=== PATIENT | male | born 1945 | race Caucasian/White ===

== ENCOUNTER 2017-07-05 02:44 | Inpatient (IN) | payer MEDICARE ==
[~2017-07-05] VITALS: Ht 177.8 cm; Wt 70.8 kg
[~2017-07-05 02:44] MED LIST: AEC81 PO; ALPR0.255 PO; BENA10TA3 PO; CALC-1009 PO; ERGO400C PO; FOLI1TAB15 PO; GABA-318 PO; GABA-531 PO; GLUC-145 PO; IRON PEG; LEVE1000 PO; LORA10TA60 PO; METO-408 PO; MULT-1203 PO; PANT40TA25 PO; PRIM250T30 PO; ROSU10TA PO; TRAM50TA4 PO; VITAMIN B12 PO; ZOLE4VIA5 IV; [UNRECOGNIZED DRUG - CODE] PO
[2017-07-05] MEDS ORDERED: SODIUM CHLORIDE 0.9% 1000ML 1,000 ML IV ONE (04:58)
[2017-07-05 05:30] LABS: OCCULT BLOOD STOOL SINGLE ONLY POSITIVE (NEGATIVE)
[2017-07-05 05:40] LABS: HEMATOCRIT 45.6 % (42-54); MEAN CORPUSCULAR HEMOGLOBIN 32.5 pg (27.0-33.0); MEAN CORPUSCULAR HGB CONC 33.8 g/dL (32.0-36.0); MEAN CORPUSCULAR VOLUME 96.2 fL (79-99); PLATELET COUNT (AUTO) 305 K/uL (130-400); RED BLOOD CELL COUNT(AUTO) 4.74 MIL/uL (4.50-6.20); RED CELL DISTRIBUTION WIDTH 12.8 % (11.0-15.5); WHITE BLOOD COUNT (AUTO) 16.1 K/uL (4.8-10.8)
[2017-07-05 05:48] LABS: POTASSIUM 3.5 mmol/L (3.5-5.1)
[2017-07-05 05:57] LABS: ALBUMIN 3.9 g/dL (3.5-5.0); BILIRUBIN,TOTAL 0.4 mg/dL (0.2-1.0); TOTAL PROTEIN, SERUM 7.2 g/dL (6.0-8.3)
[2017-07-05 06:11] LABS: BAND NEUTROPHILS % (MANUAL) 7 % (0-2); EOSINOPHILS % (MANUAL) 1 % (1-6); LYMPHOCYTES % (MANUAL) 4 % (22-44); MONOCYTES % (MANUAL) 5 % (2-9); SEGMENTED NEUTROPHILS % 83 % (40-70)
[2017-07-05 06:12] LABS: MAN.DIFF COMMENT-IMPRESSION MANUAL DIFFERENTIAL; PLATELET MORPHOLOGY COMMENT ADEQUATE
[2017-07-05] MEDS ORDERED: LEVOFLOXACIN 500 MG/D5W 100 ML 100 ML ONE (06:57)
[2017-07-05] MEDS ORDERED: METRONIDAZOLE 500MG/100ML BAG 100 ML ONE (07:52)
[2017-07-05 09:32] LABS: HEMATOCRIT 40.8 % (42-54)
[2017-07-05] MEDS ORDERED: ACETAMINOPHEN 325 MG TAB PO PRN (10:30)
[2017-07-05] MEDS ORDERED: MORPHINE SULFATE 2 MG/ML 1ML SYG IV PRN (10:30)
[2017-07-05] MEDS ORDERED: GUAIFENESIN-DM 200/20 MG 10 ML PO PRN (10:30)
[2017-07-05] MEDS ORDERED: ONDANSETRON HCL 4 MG/2 ML VIAL IV PRN (10:30)
[2017-07-05 11:45] VITALS: BP 123/75
[2017-07-05] MEDS: TRAMADOL HCL 50 MG TABLET PO SCH ×3 (13:00→20:37)
[2017-07-05] MEDS: GABAPENTIN 300 MG CAPSULE PO SCH ×3 (13:15→20:36)
[2017-07-05] MEDS ORDERED: ALPRAZOLAM 0.25 MG TABLET PO PRN (13:15)
[2017-07-05] MEDS ORDERED: LACTULOSE 20 GM/30 ML UDCUP PO SCH ×2 (13:30→15:00)
[2017-07-05 13:41] LABS: HEMATOCRIT 38.4 % (42-54)
[2017-07-05] MEDS ORDERED: LACTULOSE 20 GM/30 ML UDCUP ONE (13:44)
[2017-07-05] MEDS ORDERED: FERROUS SULFATE 325 MG TABLET.DR PO SCH (14:00)
[2017-07-05 16:00] VITALS: BP 90/50
[2017-07-05] MEDS ORDERED: MAGNESIUM CITRATE 296 ML SOLUTION PO SCH (16:00)
[2017-07-05] MEDS ORDERED: ROPI0.5T PO (16:45)
[2017-07-05] MEDS ORDERED: PEG 3350/NA SULF,BICARB,CL/KCL 4000 ML SOLN PO SCH (17:00)
[2017-07-05] MEDS ORDERED: BISACODYL 5 MG TABLET.DR PO SCH (18:00)
[2017-07-05 18:37] VITALS: BP 120/72
[2017-07-05 20:00] VITALS: BP 145/69
[2017-07-05] MEDS: ROPINIROLE HCL 1 MG TABLET PO SCH (20:36)
[2017-07-05] MEDS: ATORVASTATIN CALCIUM 20 MG TABLET PO SCH (20:36)
[2017-07-05] MEDS: LEVETIRACETAM 500 MG TABLET PO SCH (20:37)
[2017-07-05] MEDS: PRIMIDONE 50 MG TAB PO SCH (20:37)
[2017-07-05] MEDS: GLUCOSAMINE-CHONDROITIN PO SCH (20:37)
[2017-07-05] MEDS: ASCORBIC ACID 500 MG TAB PO SCH (20:37)
[2017-07-05] MEDS: CALCIUM 600 + VITAMIN D 400 TABLET PO SCH (20:37)
[2017-07-05] MEDS: SODIUM CHLORIDE 0.9% 1000ML 1,000 ML IV SCH ×2 (20:44→22:51)
[2017-07-05] MEDS ORDERED: POTASSIUM CHLORIDE 20 MEQ ERTAB PO PRN (23:30)
[2017-07-05] MEDS ORDERED: LIDOCAINE HCL-MPF 1% 2ML VIAL IVP PRN (23:30)
[2017-07-05] MEDS ORDERED: POTASSIUM CHLORIDE 20MEQ/100ML 100 ML IV PRN (23:30)
[2017-07-05] MEDS ORDERED: POTASSIUM CHLORIDE 10% ELIXIR 20 MEQ/15 ML UDCUP PO PRN (23:30)
[2017-07-06] VITALS (20 sets, daily range): BP systolic 116–166; BP diastolic 60–75
[2017-07-06] MEDS: GABAPENTIN 300 MG CAPSULE PO SCH ×6 (00:17→21:43)
[2017-07-06] MEDS: METRONIDAZOLE 500MG/100ML BAG 100 ML IV SCH ×3 (05:35→21:43)
[2017-07-06 05:41] LABS: HEMATOCRIT 35.9 % (42-54); MEAN CORPUSCULAR HGB CONC 34.5 g/dL (32.0-36.0); MEAN CORPUSCULAR VOLUME 95.7 fL (79-99); PLATELET COUNT (AUTO) 255 K/uL (130-400); RED BLOOD CELL COUNT(AUTO) 3.75 MIL/uL (4.50-6.20); WHITE BLOOD COUNT (AUTO) 17.2 K/uL (4.8-10.8)
[2017-07-06 05:43] LABS: CREATININE 0.8 mg/dL (0.5-1.5); POTASSIUM 4.5 mmol/L (3.5-5.1)
[2017-07-06] MEDS: METOPROLOL TARTRATE 25 MG TAB PO SCH ×2 (08:07→20:07)
[2017-07-06] MEDS: LEVOFLOXACIN 500 MG/D5W 100 ML 100 ML IV SCH (08:07)
[2017-07-06] MEDS ORDERED: PANTOPRAZOLE SODIUM 40 MG TABLET.DR PO SCH (09:00)
[2017-07-06] MEDS: **HM** VIT D3 400 UNITS PO SCH (09:00)
[2017-07-06] MEDS: LEVETIRACETAM 500 MG TABLET PO SCH ×3 (09:00→20:04)
[2017-07-06] MEDS: CALCIUM 600 + VITAMIN D 400 TABLET PO SCH ×2 (09:00→20:06)
[2017-07-06] MEDS: BENAZEPRIL HCL 10 MG TABLET PO SCH (09:00)
[2017-07-06] MEDS: ASCORBIC ACID 500 MG TAB PO SCH ×2 (09:00→20:06)
[2017-07-06] MEDS: PRIMIDONE 50 MG TAB PO SCH ×2 (09:00→20:06)
[2017-07-06] MEDS: MULTIVITAMIN TABLET PO SCH (09:00)
[2017-07-06] MEDS: TRAMADOL HCL 50 MG TABLET PO SCH ×4 (09:00→20:07)
[2017-07-06] MEDS: PANTOPRAZOLE SODIUM 40 MG TABLET.DR PO SCH (09:00)
[2017-07-06] MEDS: GLUCOSAMINE-CHONDROITIN PO SCH ×2 (09:00→20:06)
[2017-07-06] MEDS ORDERED: PROPOFOL 10 MG/ML 20ML VIAL IV ONE (13:17)
[2017-07-06 15:17] LABS: APPEARANCE,URINE Clear (CLEAR); BILIRUBIN,URINE Negative (NEGATIVE); COLOR,URINE Dark Yellow (YELLOW); GLUCOSE, URINE (UA) Negative (NEGATIVE); KETONES,URINE 15 mg/dL (NEGATIVE); LEUKOCYTE ESTERASE ,URINE Trace (NEGATIVE); NITRATE,URINE Negative (NEGATIVE); OCCULT BLOOD,URINE Large (NEGATIVE); PROTEIN,URINE POS 1+ (NEGATIVE)
[2017-07-06 15:44] LABS: BACTERIA,URINE Rare /HPF (None Seen); MUCUS,URINE Few LPF (None Seen); SQUAMOUS EPITHELIAL CELL,UR Rare /LPF (0-2)
[2017-07-06 15:45] LABS: HYALINE CASTS, URINE 0-1 /LPF (0-1 /LPF)
[2017-07-06] MEDS: ACETAMINOPHEN 325 MG TAB PO PRN (17:20)
[2017-07-06] MEDS: ATORVASTATIN CALCIUM 20 MG TABLET PO SCH (20:03)
[2017-07-06] MEDS: ROPINIROLE HCL 1 MG TABLET PO SCH (20:04)
[2017-07-07] VITALS: BP 134/70
[2017-07-07] MEDS: GABAPENTIN 300 MG CAPSULE PO SCH ×6 (02:49→22:17)
[2017-07-07 04:00] VITALS: BP 142/64
[2017-07-07 05:19] LABS: HEMATOCRIT 30.8 % (42-54); MEAN CORPUSCULAR HEMOGLOBIN 32.4 pg (27.0-33.0); MEAN CORPUSCULAR HGB CONC 34.2 g/dL (32.0-36.0); MEAN CORPUSCULAR VOLUME 94.8 fL (79-99); PLATELET COUNT (AUTO) 226 K/uL (130-400); RED BLOOD CELL COUNT(AUTO) 3.26 MIL/uL (4.50-6.20); RED CELL DISTRIBUTION WIDTH 12.9 % (11.0-15.5)
[2017-07-07 05:26] LABS: BAND NEUTROPHILS % (MANUAL) 8 % (0-2); LYMPHOCYTES % (MANUAL) 8 % (22-44); MAN.DIFF COMMENT-IMPRESSION MANUAL DIFFERENTIAL; MONOCYTES % (MANUAL) 9 % (2-9); PLATELET MORPHOLOGY COMMENT ADEQUATE; SEGMENTED NEUTROPHILS % 75 % (40-70)
[2017-07-07 06:12] LABS: CREATININE 0.5 mg/dL (0.5-1.5); PHOSPHORUS 1.7 mg/dL (2.5-4.9)
[2017-07-07] MEDS: METRONIDAZOLE 500MG/100ML BAG 100 ML IV SCH ×3 (06:18→22:38)
[2017-07-07 08:02] VITALS: BP 131/56
[2017-07-07] MEDS: CALCIUM 600 + VITAMIN D 400 TABLET PO SCH ×2 (08:38→21:09)
[2017-07-07] MEDS: LEVOFLOXACIN 500 MG/D5W 100 ML 100 ML IV SCH (08:39)
[2017-07-07] MEDS: PRIMIDONE 50 MG TAB PO SCH ×2 (08:39→21:00)
[2017-07-07] MEDS: GLUCOSAMINE-CHONDROITIN PO SCH ×2 (08:39→21:09)
[2017-07-07] MEDS: MULTIVITAMIN TABLET PO SCH (08:39)
[2017-07-07] MEDS: TRAMADOL HCL 50 MG TABLET PO SCH ×4 (08:40→22:17)
[2017-07-07] MEDS: PANTOPRAZOLE SODIUM 40 MG TABLET.DR PO SCH (08:40)
[2017-07-07] MEDS: BENAZEPRIL HCL 10 MG TABLET PO SCH (08:40)
[2017-07-07] MEDS: ASCORBIC ACID 500 MG TAB PO SCH ×2 (08:41→21:10)
[2017-07-07] MEDS: METOPROLOL TARTRATE 25 MG TAB PO SCH ×2 (08:41→21:10)
[2017-07-07] MEDS: LEVETIRACETAM 500 MG TABLET PO SCH ×2 (08:41→21:10)
[2017-07-07] MEDS: **HM** VIT D3 400 UNITS PO SCH (09:00)
[2017-07-07] MEDS ORDERED: POTASSIUM PHOS 15 mMOL+NS250ML 250 ML IV SCH (09:45)
[2017-07-07 11:40] VITALS: BP 121/70
[2017-07-07 16:38] VITALS: BP 110/56
[2017-07-07 20:00] VITALS: BP 113/51
[2017-07-07] MEDS: ROPINIROLE HCL 1 MG TABLET PO SCH (21:10)
[2017-07-07] MEDS: ATORVASTATIN CALCIUM 20 MG TABLET PO SCH (21:10)
[2017-07-08] VITALS: BP 126/62
[2017-07-08] MEDS: ACETAMINOPHEN 325 MG TAB PO PRN (00:13)
[2017-07-08] MEDS: GABAPENTIN 300 MG CAPSULE PO SCH ×3 (02:51→08:43)
[2017-07-08 04:00] VITALS: BP 140/70
[2017-07-08 04:00] LABS: HEMATOCRIT 29.9 % (42-54); MEAN CORPUSCULAR HEMOGLOBIN 33.8 pg (27.0-33.0); MEAN CORPUSCULAR HGB CONC 35.5 g/dL (32.0-36.0); MEAN CORPUSCULAR VOLUME 95.1 fL (79-99); PLATELET COUNT (AUTO) 211 K/uL (130-400); RED BLOOD CELL COUNT(AUTO) 3.14 MIL/uL (4.50-6.20)
[2017-07-08 04:16] LABS: CREATININE 0.7 mg/dL (0.5-1.5); POTASSIUM 3.1 mmol/L (3.5-5.1)
[2017-07-08] MEDS: METRONIDAZOLE 500MG/100ML BAG 100 ML IV SCH (06:06)
[2017-07-08] MEDS: LEVOFLOXACIN 500 MG/D5W 100 ML 100 ML IV SCH (08:05)
[2017-07-08 08:12] VITALS: BP 146/67
[2017-07-08] MEDS: MULTIVITAMIN TABLET PO SCH (08:42)
[2017-07-08] MEDS: PANTOPRAZOLE SODIUM 40 MG TABLET.DR PO SCH (08:42)
[2017-07-08] MEDS: CALCIUM 600 + VITAMIN D 400 TABLET PO SCH (08:42)
[2017-07-08] MEDS: GLUCOSAMINE-CHONDROITIN PO SCH (08:42)
[2017-07-08] MEDS: BENAZEPRIL HCL 10 MG TABLET PO SCH (08:43)
[2017-07-08] MEDS: ASCORBIC ACID 500 MG TAB PO SCH (08:43)
[2017-07-08] MEDS: LEVETIRACETAM 500 MG TABLET PO SCH (08:43)
[2017-07-08] MEDS: METOPROLOL TARTRATE 25 MG TAB PO SCH (08:43)
[2017-07-08] MEDS: PRIMIDONE 50 MG TAB PO SCH (08:43)
[2017-07-08] MEDS: TRAMADOL HCL 50 MG TABLET PO SCH (08:44)
[2017-07-08] MEDS: **HM** VIT D3 400 UNITS PO SCH (08:48)
== END 2017-07-08 11:40 | disposition home or self-care (01) | DRG 392 ==
LOC: EDH 02:44 → OBSVTOIN 07:10 → EDHIP 07:10 → 4BH 11:45
PROVIDERS: ADMIT Family Medicine; ATTEND Family Medicine
PROC: 0DBM8ZX Excision of Descending Colon, Via Natural or Artificial Opening Endoscopic, Diagnostic (ICD-10-PCS; principal; 2017-07-06)
PROC: 0DBN8ZX Excision of Sigmoid Colon, Via Natural or Artificial Opening Endoscopic, Diagnostic (ICD-10-PCS; 2017-07-06)
DX: A09 Infectious gastroenteritis and colitis, unspecified (principal); D62 Acute posthemorrhagic anemia; G40.909 Epilepsy, unspecified, not intractable, without status epilepticus; K57.92 Diverticulitis of intestine, part unspecified, without perforation or abscess without bleeding; E07.9 Disorder of thyroid, unspecified; E78.5 Hyperlipidemia, unspecified; F41.9 Anxiety disorder, unspecified; G25.81 Restless legs syndrome; G89.4 Chronic pain syndrome; I10 Essential (primary) hypertension; I25.10 Atherosclerotic heart disease of native coronary artery without angina pectoris; J43.9 Emphysema, unspecified; K64.8 Other hemorrhoids; L98.499 Non-pressure chronic ulcer of skin of other sites with unspecified severity; D72.829 Elevated white blood cell count, unspecified; Z88.0 Allergy status to penicillin; Z88.8 Allergy status to other drugs, medicaments and biological substances; Z91.018 Allergy to other foods; Z87.891 Personal history of nicotine dependence; Z83.3 Family history of diabetes mellitus; Z82.49 Family history of ischemic heart disease and other diseases of the circulatory system; Z80.8 Family history of malignant neoplasm of other organs or systems
CPT/HCPCS: 36415; 74176; 80048; 80053; 81001; 82270; 83735; 84100; 84443; 85025; 85027; 87046; 87205; 87324; 87507; 88305; J1956; J2704; J3480; J3490; J7030

== ENCOUNTER → 2017-08-28 | Outpatient (CLI) | payer MEDICARE ==
[~2017-08-28] MED LIST changes: -FOLI1TAB15 PO; -GABA-318 PO; +IOPAMIDOL-370 100 ML VIAL IV ONE; -LORA10TA60 PO; +ROPI0.5T PO; -VITAMIN B12 PO
== END | disposition home or self-care (01) ==
LOC: OIH 07:48
PROVIDERS: ATTEND Internal Medicine Cardiovascular Disease
DX: K55.059 Acute (reversible) ischemia of intestine, part and extent unspecified (principal); I70.0 Atherosclerosis of aorta; J44.9 Chronic obstructive pulmonary disease, unspecified; K59.00 Constipation, unspecified; N20.0 Calculus of kidney; M47.896 Other spondylosis, lumbar region; K42.9 Umbilical hernia without obstruction or gangrene
CPT/HCPCS: 74175; Q9967

== ENCOUNTER → 2019-02-10 | Outpatient (CLI) | payer MEDICARE ==
[~2019-02-10] VITALS: Ht 180.3 cm; Wt 73.9 kg
[~2019-02-10] MED LIST changes: +BENA10TA12 PO; -BENA10TA3 PO; -IOPAMIDOL-370 100 ML VIAL IV ONE; +REGADENOSON 0.4 MG/5 ML PF SYG IVP SCH; -ROSU10TA PO; +ROSU10TA22 PO
== END | disposition home or self-care (01) ==
LOC: SHCH 07:45
PROVIDERS: ATTEND Internal Medicine Cardiovascular Disease
DX: I10 Essential (primary) hypertension (principal); I25.10 Atherosclerotic heart disease of native coronary artery without angina pectoris; E78.5 Hyperlipidemia, unspecified
CPT/HCPCS: 78452; 93017; 96374; A9500 ×2; J2785

== ENCOUNTER → 2019-02-18 | Outpatient (CLI) | payer MEDICARE ==
[~2019-02-18] MED LIST changes: +ACET-2743 PO; +ALBUHFA IH; +CYAN500T63 PO; +FERR-82 PO; +FOLI1TAB15 PO; +GABA600T10 PO; +LORA10TA7 PO; -REGADENOSON 0.4 MG/5 ML PF SYG IVP SCH; +ROPI0.2527 PO; +SACC250C9 PO
== END | disposition home or self-care (01) ==
LOC: RAH 12:11
PROVIDERS: ATTEND Physical Medicine & Rehabilitation
DX: M84.48XA Pathological fracture, other site, initial encounter for fracture (principal); M47.816 Spondylosis without myelopathy or radiculopathy, lumbar region
CPT/HCPCS: 72131

== ENCOUNTER 2019-02-21 17:00 | Observation (INO) | payer MEDICARE ==
[~2019-02-21] VITALS: Ht 175.3 cm; Wt 72.5 kg
[2019-02-21 13:58] VITALS: BP 146/68
[2019-02-21 14:01] LABS: BASOPHILS % (AUTO) 0.6 % (0.0-5.0); EOSINOPHILS % (AUTO) 1.5 % (0.0-8.0); HEMATOCRIT 38.3 % (42-54); LYMPHOCYTES % (AUTO) 13.9 % (21.0-51.0); MEAN CORPUSCULAR HEMOGLOBIN 33.8 pg (27.0-33.0); MEAN CORPUSCULAR HGB CONC 33.9 g/dL (32.0-36.0); MEAN CORPUSCULAR VOLUME 99.7 fL (79-99); MONOCYTES % (AUTO) 12.4 % (3.0-13.0); NEUTROPHILS % (AUTO) 71.6 % (40.0-77.0); PLATELET COUNT (AUTO) 281 K/uL (130-400); RED BLOOD CELL COUNT(AUTO) 3.84 MIL/uL (4.50-6.20); RED CELL DISTRIBUTION WIDTH 13.1 % (11.0-15.5); WHITE BLOOD COUNT (AUTO) 7.5 K/uL (4.8-10.8)
[2019-02-21 14:12] LABS: CREATININE 0.6 mg/dL (0.5-1.5); POTASSIUM 5.2 mmol/L (3.5-5.1)
[~2019-02-21 17:00] MED LIST changes: -ALPR0.255 PO; -CALC-1009 PO; -IRON PEG; -ROPI0.5T PO; -ZOLE4VIA5 IV; -[UNRECOGNIZED DRUG - CODE] PO
--- NOTE | 2019-02-22 12:26 | NUR ---
labs abnormal labs reported to dr. killian, further orders given and will be carried out
[2019-02-23] VITALS (26 sets, daily range): BP systolic 122–165; BP diastolic 68–96
[2019-02-23] MEDS: BUPIVACAINE/EPI/PF 0.25% 30ML VIAL IJ SCH ×2 (07:00→11:59)
[2019-02-23] MEDS ORDERED: CLINDAMYCIN 900 MG/D5% WATER 50 ML IV ONE (07:49)
[2019-02-23] MEDS ORDERED: LACTATED RINGERS 1000ML 1,000 ML IV ONE (07:49)
[2019-02-23 08:08] LABS: CREATININE 0.7 mg/dL (0.5-1.5); POTASSIUM 4.2 mmol/L (3.5-5.1)
[2019-02-23] MEDS ORDERED: DEXAMETHASONE SOD PHOSPHATE 10MG/ML 1ML VIAL ONE (08:49)
[2019-02-23] MEDS ORDERED: LIDOCAINE PF 2% 5ML ABBOJECT ONE (08:49)
[2019-02-23] MEDS ORDERED: SUCCINYLCHOLINE 200MG/10ML SYR ONE (08:49)
[2019-02-23] MEDS ORDERED: GLYCOPYRROLATE 1 MG/5 ML SYRINGE ONE (08:49)
[2019-02-23] MEDS ORDERED: ONDANSETRON HCL 4 MG/2 ML VIAL ONE (08:50)
[2019-02-23] MEDS ORDERED: NEOSTIGMINE 5MG/5ML SYR IV ONE (08:50)
[2019-02-23] MEDS ORDERED: PROPOFOL 10 MG/ML 20ML VIAL IV ONE (08:50)
[2019-02-23] MEDS ORDERED: ROCURONIUM 10MG/1ML SYR 10 MG/ML ML ONE (08:50)
[2019-02-23] MEDS ORDERED: MIDAZOLAM HCL 1 MG/ML 2ML VIAL ONE (08:50)
[2019-02-23] MEDS ORDERED: FENTANYL CITRATE PF 50 MCG/1 ML 2ML VIAL ONE (08:51)
[2019-02-23] MEDS ORDERED: ARTIFICIAL TEARS 3.5 GM OINTMENT ONE (09:06)
[2019-02-23] MEDS ORDERED: BACITRACIN 50,000 UNIT VIAL ONE (09:54)
[2019-02-23] MEDS: CLINDAMYCIN 900 MG/D5% WATER 50 ML IV SCH ×3 (11:30→20:21)
[2019-02-23] MEDS ORDERED: THROMBIN-JMI 5000 UNIT/VIAL TP ONE (11:56)
[2019-02-23] MEDS: LACTATED RINGERS 1000ML 1,000 ML IV SCH (12:43)
[2019-02-23] MEDS ORDERED: NON-FORMULARY MEDICATION 1 EACH (Gabapentin 600 MG) PO SCH (12:45)
[2019-02-23] MEDS ORDERED: PROMETHAZINE HCL 25 MG/ML 1ML AMPULE IM PRN (12:45)
[2019-02-23] MEDS ORDERED: HYDROCODONE/ACETAMINOPHEN 5/325 MG TAB PO PRN (12:45)
[2019-02-23] MEDS ORDERED: MORPHINE SULFATE 2 MG/ML 1ML SYG IVP PRN (12:45)
[2019-02-23] MEDS ORDERED: TRAMADOL HCL 50 MG TABLET PO SCH (12:45)
[2019-02-23] MEDS ORDERED: ROPINIROLE HCL 0.25 MG TABLET PO PRN (12:45)
[2019-02-23] MEDS: DEXAMETHASONE SOD PHOSPHATE 4 MG/ML 1ML VIAL IVP SCH ×2 (12:45→18:43)
[2019-02-23] MEDS ORDERED: SODIUM CHLORIDE 0.9% 10 ML VIAL IVP PRN (12:45)
[2019-02-23] MEDS: GABAPENTIN 300 MG CAPSULE PO SCH ×3 (13:00→21:04)
[2019-02-23] MEDS: TRAMADOL HCL 50 MG TABLET PO SCH ×2 (14:00→21:03)
[2019-02-23] MEDS: ALBUTEROL SULFATE 0.083% 2.5 MG/3 ML INH IH SCH (19:42)
[2019-02-23] MEDS ORDERED: ACETAMINOPHEN EXTRA STRENGTH 500 MG TABLET PO SCH (21:00)
[2019-02-23] MEDS ORDERED: ASPIRIN 81 MG EC TAB PO SCH (21:00)
[2019-02-23] MEDS ORDERED: LORATADINE 10 MG TABLET PO SCH (21:00)
[2019-02-23] MEDS ORDERED: SACCHAROMYCES BOULARDII PO SCH (21:00)
[2019-02-23] MEDS ORDERED: ATORVASTATIN CALCIUM 20 MG TABLET PO SCH (21:00)
[2019-02-23] MEDS: LEVETIRACETAM 500 MG TABLET PO SCH (21:03)
[2019-02-23] MEDS: METOPROLOL TARTRATE 25 MG TAB PO SCH (21:04)
[2019-02-23] MEDS: PANTOPRAZOLE SODIUM 40 MG TABLET.DR PO SCH (21:05)
[2019-02-23] MEDS: PRIMIDONE 50 MG TAB PO SCH (21:05)
[2019-02-23] MEDS: ROPINIROLE HCL 0.25 MG TABLET PO SCH (21:10)
[2019-02-24] MEDS: LACTATED RINGERS 1000ML 1,000 ML IV SCH (00:45)
[2019-02-24] MEDS: DEXAMETHASONE SOD PHOSPHATE 4 MG/ML 1ML VIAL IVP SCH ×2 (00:45→06:01)
[2019-02-24 04:00] VITALS: BP 120/63
--- NOTE | 2019-02-24 06:00 | NUR ---
F/C F/C DISCONTINUED DTV , INSTRUCT PATIENT TO CALL NURSE WHEN URGE TO VOID, CALL [facility] AT REACH
[2019-02-24] MEDS: CLINDAMYCIN 900 MG/D5% WATER 50 ML IV SCH (06:01)
[2019-02-24] MEDS: BUPIVACAINE/EPI/PF 0.25% 30ML VIAL IJ SCH (06:01)
[2019-02-24] MEDS: ALBUTEROL SULFATE 0.083% 2.5 MG/3 ML INH IH SCH (06:47)
[2019-02-24 08:09] VITALS: BP 126/68
[2019-02-24] MEDS ORDERED: CHOLECALCIFEROL 400 UNIT PO SCH (09:00)
[2019-02-24] MEDS ORDERED: FOLIC ACID 1 MG TABLET PO SCH (09:00)
[2019-02-24] MEDS ORDERED: MULTIVITAMIN TABLET PO SCH (09:00)
[2019-02-24] MEDS ORDERED: GLUCOSAMINE-CHONDROITIN PO SCH (09:00)
[2019-02-24] MEDS ORDERED: BENAZEPRIL HCL 10 MG TABLET PO SCH (09:00)
[2019-02-24] MEDS ORDERED: FERROUS SULFATE 325 MG TABLET.DR PO SCH (09:00)
[2019-02-24] MEDS: TRAMADOL HCL 50 MG TABLET PO SCH ×2 (09:20→13:41)
[2019-02-24] MEDS: PANTOPRAZOLE SODIUM 40 MG TABLET.DR PO SCH (09:20)
[2019-02-24] MEDS: LEVETIRACETAM 500 MG TABLET PO SCH (09:21)
[2019-02-24] MEDS: PRIMIDONE 50 MG TAB PO SCH (09:21)
[2019-02-24] MEDS: GABAPENTIN 300 MG CAPSULE PO SCH ×2 (09:21→14:03)
[2019-02-24] MEDS: METOPROLOL TARTRATE 25 MG TAB PO SCH (09:22)
[2019-02-24] MEDS: ROPINIROLE HCL 0.25 MG TABLET PO SCH (09:22)
[2019-02-24 11:26] VITALS: BP 137/70
--- NOTE | 2019-02-24 11:30 | NUR ---
PT VOIDED 500 CC OF CLEAR URINE
--- NOTE | 2019-02-24 14:05 | NUR ---
PT D/C VIA TEACH BACK SUCESSFULLY REFER TO D/C SUMMARY IV REMOVED, TIP INTACT NO SIGNS OF INFECTION OR BLEEDING NOTED UPON DRESSING CHANGES DR. WETZEL'S ORDERS GIVEN AND EDUCATION WITH TEACH BACK SUCCESSFULLY
== END 2019-02-24 14:59 | disposition home or self-care (01) ==
LOC: DAHIP 02-23 05:54 → 4BH 02-23 14:50 → EDSTATUS 02-23 17:00
PROVIDERS: ADMIT Neurological Surgery; ATTEND Neurological Surgery
DX: M89.8X8 Other specified disorders of bone, other site (principal); M48.061 Spinal stenosis, lumbar region without neurogenic claudication; D64.9 Anemia, unspecified; I25.10 Atherosclerotic heart disease of native coronary artery without angina pectoris; Z98.1 Arthrodesis status; Z88.0 Allergy status to penicillin
CPT/HCPCS: 20251; 36415 ×2; 71045; 72100; 80048 ×2; 85025; 94640 ×2; 94664; 96365; 96375; 96376; A4215; A4221; A4222; A4223; A4344; A4510; A4600; A4649 ×3; A4663; A6260; G0378 ×25; J0330; J1100 ×4; J2001; J2250; J2405; J2704; J2710; J3010; J3490 ×6; J7030; J7120

== ENCOUNTER → 2019-10-11 | Outpatient (CLI) | payer MEDICARE ==
[~2019-10-11] MED LIST changes: -BENA10TA12 PO; +BENA10TA77 PO
== END | disposition home or self-care (01) ==
LOC: SHCH 14:00
PROVIDERS: ATTEND Internal Medicine Cardiovascular Disease
DX: I10 Essential (primary) hypertension (principal); I25.10 Atherosclerotic heart disease of native coronary artery without angina pectoris
CPT/HCPCS: 93306

== ENCOUNTER 2020-02-22 08:46 | Inpatient (IN) | payer MEDICARE ==
[~2020-02-22] VITALS: Ht 172.7 cm; Wt 68.8 kg
[~2020-02-22 08:46] MED LIST changes: -PANT40TA25 PO; +PANT40TA55 PO
[2020-02-22 09:30] LABS: CREATININE 0.9 mg/dL (0.5-1.5)
[2020-02-22 09:35] LABS: ALBUMIN 4.2 g/dL (3.5-5.0); BILIRUBIN,TOTAL 0.3 mg/dL (0.2-1.0); TOTAL PROTEIN, SERUM 7.7 g/dL (6.0-8.3)
[2020-02-22 09:41] LABS: BASOPHILS % (AUTO) 0.4 % (0.0-5.0); EOSINOPHILS % (AUTO) 0.3 % (0.0-8.0); HEMATOCRIT 41.2 % (42-54); LYMPHOCYTES % (AUTO) 9.2 % (21.0-51.0); MEAN CORPUSCULAR HEMOGLOBIN 32.5 pg (27.0-33.0); MEAN CORPUSCULAR HGB CONC 34.2 g/dL (32.0-36.0); MEAN CORPUSCULAR VOLUME 94.9 fL (79-99); MONOCYTES % (AUTO) 11.9 % (3.0-13.0); NEUTROPHILS % (AUTO) 77.9 % (40.0-77.0); PLATELET COUNT (AUTO) 228 K/uL (130-400); RED BLOOD CELL COUNT(AUTO) 4.34 MIL/uL (4.50-6.20); RED CELL DISTRIBUTION WIDTH 12.4 % (11.0-15.5); WHITE BLOOD COUNT (AUTO) 7.4 K/uL (4.8-10.8)
[2020-02-22 09:45] LABS: INR 0.95 (0.85-1.15); PROTHROMBIN TIME 10.3 SEC (9.6-11.6)
[2020-02-22] MEDS ORDERED: METHYLPREDNISOLONE SOD SUCC 125MG/2ML VIAL ONE (10:26)
[2020-02-22] MEDS ORDERED: IPRATROPIUM/ALBUTEROL SULFATE 3 ML SOLUTION IH ONE (10:53)
[2020-02-22] MEDS ORDERED: IOHEXOL-350 75 ML VIAL IV ONE (13:01)
[2020-02-22] MEDS ORDERED: AZITHROMYCIN 500MG+NS 250ML 250 ML IV ONE (16:56)
[2020-02-22] MEDS ORDERED: DIPHENHYDRAMINE HCL 25 MG CAPSULE PO PRN (18:15)
[2020-02-22] MEDS ORDERED: ACETAMINOPHEN 325 MG TAB PO PRN ×2 (18:15)
[2020-02-22] MEDS: METHYLPREDNISOLONE SOD SUCC 40MG/ML 1ML IVP SCH (18:15)
[2020-02-22] MEDS ORDERED: MAG HYDROX/AL HYDROX/SIMETH ES 30 ML SUSP UDCUP PO PRN (18:15)
[2020-02-22] MEDS ORDERED: DiphenhydrAMINE HCL 50 MG/ML VIAL IV PRN (18:15)
[2020-02-22] MEDS ORDERED: NITROGLYCERIN 0.4 MG SL TAB SL PRN (18:15)
[2020-02-22] MEDS ORDERED: ONDANSETRON HCL 4 MG/2 ML VIAL IV PRN (18:15)
[2020-02-22] MEDS ORDERED: LACTULOSE 20 GM/30 ML UDCUP PO PRN (18:15)
[2020-02-22] MEDS ORDERED: ACETAMINOPHEN-CODEINE 300/30MG TAB ONE (20:07)
[2020-02-22 20:10] LABS: CREATININE 0.6 mg/dL (0.5-1.5); POTASSIUM 3.7 mmol/L (3.5-5.1)
[2020-02-22 20:18] LABS: LACTATE DEHYDROGENASE 202 U/L (81-234)
[2020-02-22] MEDS ORDERED: HEPARIN SODIUM 5000UNIT/ML 1ML VIAL SQ SCH (21:00)
[2020-02-22] MEDS ORDERED: METHYLPREDNISOLONE SOD SUCC 40MG/ML 1ML ONE (22:09)
[2020-02-22] MEDS ORDERED: HEPARIN SODIUM 5000UNIT/ML 1ML VIAL ONE (22:10)
[2020-02-23] VITALS (7 sets, daily range): BP systolic 119–162; BP diastolic 74–93
--- NOTE | 2020-02-23 00:15 | NUR ---
ADMISSION PATIENT ADMITTED TO THE UNIT FROM THE ER ACCOMPANIED BY STAFF. AMBULATED TO BATHROOM WITH ASSISTANCE. DENIES ANY PAIN AT THIS TIME. PATIENT TOOK HOME MEDS LORSARTAN 100MG, KEPPRA 500 MG (2 TABS), AND VITAMIN D3 10 MCG (1 tABLET). PT PROVIDED WITH SANDWICH PER REQUEST.TELEMETRY BOX # 4 APPLIED, WILL CONTINUE TO MONITOR PATIENT THROUGHOUT THE SHIFT.
[2020-02-23] MEDS: GUAIFENESIN-DM 200/20 MG 10 ML PO PRN (04:25)
[2020-02-23 04:46] LABS: BASOPHILS % (AUTO) 0.1 % (0.0-5.0); MEAN CORPUSCULAR HEMOGLOBIN 32.9 pg (27.0-33.0); MEAN CORPUSCULAR HGB CONC 34.8 g/dL (32.0-36.0); MEAN CORPUSCULAR VOLUME 94.8 fL (79-99); MONOCYTES % (AUTO) 6.4 % (3.0-13.0); NEUTROPHILS % (AUTO) 86.3 % (40.0-77.0); PLATELET COUNT (AUTO) 230 K/uL (130-400); RED BLOOD CELL COUNT(AUTO) 4.22 MIL/uL (4.50-6.20); RED CELL DISTRIBUTION WIDTH 12.5 % (11.0-15.5); WHITE BLOOD COUNT (AUTO) 8.8 K/uL (4.8-10.8)
[2020-02-23 05:00] LABS: ALANINE AMINOTRANSFERASE 22 U/L (12-78); ALBUMIN 3.8 g/dL (3.5-5.0); ASPARTATE AMINOTRANSFERASE 24 U/L (10-37); BILIRUBIN,TOTAL 0.4 mg/dL (0.2-1.0); CARBON DIOXIDE 28 mmol/L (21-32); CHLORIDE 96 mmol/L (101-111); CREATININE 0.7 mg/dL (0.5-1.5); GLOMERULAR FILTR. RATE CALC 117 mL/min (>60); GLUCOSE,RANDOM 117 mg/dL (70-105); LACTATE DEHYDROGENASE 194 U/L (81-234); POTASSIUM 4.2 mmol/L (3.5-5.1); SODIUM SERUM 130 mmol/L (136-145); TOTAL PROTEIN, SERUM 7.3 g/dL (6.0-8.3); UREA NITROGEN, BLOOD 12 mg/dL (7-18)
[2020-02-23] MEDS: METHYLPREDNISOLONE SOD SUCC 40MG/ML 1ML IVP SCH ×3 (05:50→21:55)
[2020-02-23] MEDS ORDERED: FLU VACC QS2020-21(6MOS UP)/PF 60 MCG/0.5 ML ML IM ONE (06:00)
[2020-02-23] MEDS: FLU VACC QS2020-21(6MOS UP)/PF 60 MCG/0.5 ML ML IM SCH ×2 (06:30→19:27)
[2020-02-23] MEDS ORDERED: LOSA100T2 PO (08:43)
[2020-02-23] MEDS ORDERED: FLUT1BLS3 IH (08:43)
[2020-02-23] MEDS ORDERED: ROPI0.5T7 PO (08:43)
[2020-02-23] MEDS ORDERED: CYAN25002 SL (08:43)
[2020-02-23] MEDS ORDERED: ALBU8.5H8 IH (08:43)
[2020-02-23 11:25] LABS: ABG BASE EXCESS 2.2 mmol/L (-2.0-3.0); ABG HCO3 25.5 mmol/L (21.0-28.0); ABG OXYGEN SATURATION 92.6 % (95.0-99.0); ABG PCO2 36 mmHg (35-48)
[2020-02-23] MEDS ORDERED: PHARMACY COMMUNICATION MISC SCH ×4 (11:30→11:45)
[2020-02-23] MEDS: AZITHROMYCIN 250 MG TABLET PO SCH (12:32)
--- NOTE | 2020-02-23 16:38 | NUR ---
DC PLAN CALLED SPOUSE. INDEPENDENT ABLE TO PERFORM ADL'S. PATIENT HAS NO SERVICES. PATIENT HAS A WALKER, CANE, 02. PORTABLE AND CONCENTRATOR AVAILABLE. USES MAINLY AT NIGHT. FEELS SAFE TO RETURN HOME. Addendum: 02/23/20 at 1643 by MADY SPARKS RN CM Amended: Links added.
--- NOTE | 2020-02-23 20:55 | NUR ---
SPOKE TO SIRI MUJICA REGARDING THE NEED TO RECONCILE PATIENTS HOME MEDICATIONS HE IS CONCERN ABOUT NOT TAKING HIS KEPPRA. LINDA STATED THAT SHE WILL REVIEW AND ORDER MEDICATIONS SOON POSSIBLE.
[2020-02-23] MEDS: FLUTICASONE PROPIONATE 50MCG/SPRAY 16 GM BOTTLE EN SCH (21:17)
[2020-02-23] MEDS: ASPIRIN 81 MG EC TAB PO SCH (22:08)
[2020-02-23] MEDS: LORATADINE 10 MG TABLET PO SCH (22:08)
[2020-02-23] MEDS: LEVETIRACETAM 500 MG TABLET PO SCH (22:08)
[2020-02-23] MEDS: FERROUS SULFATE 325 MG TABLET.DR PO SCH (22:08)
[2020-02-23] MEDS: PANTOPRAZOLE SODIUM 40 MG TABLET.DR PO SCH (22:10)
[2020-02-23] MEDS: PRIMIDONE 50 MG TAB PO SCH (22:10)
[2020-02-23] MEDS: ROPINIROLE HCL 1 MG TABLET PO SCH (22:10)
--- NOTE | 2020-02-23 23:15 | NUR ---
ELEVATED BP PATIENT BP 162/93, MEDICATION DOSAGE SCHEDULED FOR 02/23 AT 0900. ORDER OBTAINED FROM Jenny (SIRI) TO GIVE A DOSE OF LOSARTAN 100MG PO. PATIENT MEDICATED ORDERED, WILL REASSESS BP.
[2020-02-23] MEDS ORDERED: LOSARTAN 100 MG TABLET ONE (23:16)
[2020-02-23] MEDS: LOSARTAN 100 MG TABLET PO SCH (23:18)
[2020-02-24] VITALS (7 sets, daily range): BP systolic 123–178; BP diastolic 71–99
[2020-02-24] MEDS: GUAIFENESIN-DM 200/20 MG 10 ML PO PRN (00:04)
[2020-02-24] MEDS: METHYLPREDNISOLONE SOD SUCC 40MG/ML 1ML IVP SCH ×3 (05:47→21:26)
[2020-02-24 05:51] LABS: BASOPHILS % (AUTO) 0.1 % (0.0-5.0); HEMATOCRIT 37.6 % (42-54); LYMPHOCYTES % (AUTO) 4.9 % (21.0-51.0); MEAN CORPUSCULAR HEMOGLOBIN 32.7 pg (27.0-33.0); MEAN CORPUSCULAR HGB CONC 34.6 g/dL (32.0-36.0); MEAN CORPUSCULAR VOLUME 94.7 fL (79-99); NEUTROPHILS % (AUTO) 83.7 % (40.0-77.0); PLATELET COUNT (AUTO) 212 K/uL (130-400); RED BLOOD CELL COUNT(AUTO) 3.97 MIL/uL (4.50-6.20); RED CELL DISTRIBUTION WIDTH 12.4 % (11.0-15.5); WHITE BLOOD COUNT (AUTO) 9.3 K/uL (4.8-10.8)
[2020-02-24 06:22] LABS: ALANINE AMINOTRANSFERASE 22 U/L (12-78); ALBUMIN 3.4 g/dL (3.5-5.0); ASPARTATE AMINOTRANSFERASE 24 U/L (10-37); BILIRUBIN,TOTAL 0.4 mg/dL (0.2-1.0); CARBON DIOXIDE 27 mmol/L (21-32); CHLORIDE 98 mmol/L (101-111); CREATININE 0.7 mg/dL (0.5-1.5); GLOMERULAR FILTR. RATE CALC 117 mL/min (>60); GLUCOSE,RANDOM 114 mg/dL (70-105); LACTATE DEHYDROGENASE 177 U/L (81-234); SODIUM SERUM 131 mmol/L (136-145); TOTAL PROTEIN, SERUM 6.6 g/dL (6.0-8.3); UREA NITROGEN, BLOOD 18 mg/dL (7-18)
[2020-02-24] MEDS: FERROUS SULFATE 325 MG TABLET.DR PO SCH ×3 (08:35→21:25)
[2020-02-24] MEDS: PRIMIDONE 50 MG TAB PO SCH ×2 (08:35→21:24)
[2020-02-24] MEDS: LEVETIRACETAM 500 MG TABLET PO SCH ×2 (08:35→21:25)
[2020-02-24] MEDS: PANTOPRAZOLE SODIUM 40 MG TABLET.DR PO SCH ×2 (08:36→21:25)
[2020-02-24] MEDS: CETIRIZINE HCL 5 MG TABLET PO SCH (08:36)
[2020-02-24] MEDS: ROPINIROLE HCL 1 MG TABLET PO SCH ×3 (08:36→21:25)
[2020-02-24] MEDS: METOPROLOL SUCCINATE 50 MG TAB.SR.24H PO SCH (08:36)
[2020-02-24] MEDS: FOLIC ACID 1 MG TABLET PO SCH (08:36)
[2020-02-24] MEDS: ENOXAPARIN SODIUM 40 MG/0.4 ML SYRINGE SQ SCH (08:37)
[2020-02-24] MEDS: FLUTICASONE PROPIONATE 50MCG/SPRAY 16 GM BOTTLE EN SCH ×2 (08:38→21:26)
[2020-02-24] MEDS: **HM** TRELEGY ELLIPTA IH SCH (08:54)
[2020-02-24] MEDS: CHOLECALCIFEROL 400 UNIT PO SCH (09:00)
[2020-02-24] MEDS: AZITHROMYCIN 250 MG TABLET PO SCH (13:35)
--- NOTE | 2020-02-24 17:16 | NUR ---
TRANSFER REPORT GIVEN TO NURSE. PATIENT TRANSFERRED TO 4TH FLOOR VIA [email or web address].
--- NOTE | 2020-02-24 20:43 | NUR ---
RECEIVED PT ALERT AND ORIENTS TO UNIT, TRANSPORTED VIA BED IN ATTENDANCE BY NURSING STAFF. PT WITH NO COMPLAINTS OF PAIN OR ACUTE S/S OF DISTRESS. OS @2L VIA NC TOLERATING WELL WITH STATS AT 98% SKIN INTACT BUT FRAIL WILL CONTINUE TO MONITOR
[2020-02-24] MEDS: ASPIRIN 81 MG EC TAB PO SCH (21:24)
[2020-02-24] MEDS: ATORVASTATIN CALCIUM 20 MG TABLET PO SCH (21:25)
[2020-02-24] MEDS: LORATADINE 10 MG TABLET PO SCH (21:25)
[2020-02-25] MEDS: ZOLPIDEM TARTRATE 5 MG TAB PO PRN (00:36)
[2020-02-25 04:06] VITALS: BP 157/92
[2020-02-25 05:09] LABS: BASOPHILS % (AUTO) 0.1 % (0.0-5.0); EOSINOPHILS % (AUTO) 0.1 % (0.0-8.0); HEMATOCRIT 37.1 % (42-54); LYMPHOCYTES % (AUTO) 5.6 % (21.0-51.0); MEAN CORPUSCULAR HEMOGLOBIN 32.8 pg (27.0-33.0); MEAN CORPUSCULAR VOLUME 93.7 fL (79-99); MONOCYTES % (AUTO) 9.4 % (3.0-13.0); NEUTROPHILS % (AUTO) 84.5 % (40.0-77.0); PLATELET COUNT (AUTO) 234 K/uL (130-400); RED BLOOD CELL COUNT(AUTO) 3.96 MIL/uL (4.50-6.20); RED CELL DISTRIBUTION WIDTH 12.2 % (11.0-15.5); WHITE BLOOD COUNT (AUTO) 9.6 K/uL (4.8-10.8)
[2020-02-25 05:21] LABS: ALANINE AMINOTRANSFERASE 29 U/L (12-78); ALBUMIN 3.7 g/dL (3.5-5.0); ASPARTATE AMINOTRANSFERASE 25 U/L (10-37); BILIRUBIN,TOTAL 0.4 mg/dL (0.2-1.0); CARBON DIOXIDE 27 mmol/L (21-32); CHLORIDE 95 mmol/L (101-111); CREATININE 0.7 mg/dL (0.5-1.5); GLOMERULAR FILTR. RATE CALC 117 mL/min (>60); GLUCOSE,RANDOM 106 mg/dL (70-105); LACTATE DEHYDROGENASE 201 U/L (81-234); POTASSIUM 3.7 mmol/L (3.5-5.1); SODIUM SERUM 130 mmol/L (136-145); TOTAL PROTEIN, SERUM 6.8 g/dL (6.0-8.3); UREA NITROGEN, BLOOD 17 mg/dL (7-18)
[2020-02-25] MEDS: METHYLPREDNISOLONE SOD SUCC 40MG/ML 1ML IVP SCH ×3 (06:02→20:59)
[2020-02-25] MEDS: FLU VACC QS2020-21(6MOS UP)/PF 60 MCG/0.5 ML ML IM SCH (06:03)
[2020-02-25] MEDS: LOSARTAN 100 MG TABLET PO SCH (08:07)
[2020-02-25] MEDS: CETIRIZINE HCL 5 MG TABLET PO SCH (08:07)
[2020-02-25] MEDS: FERROUS SULFATE 325 MG TABLET.DR PO SCH ×3 (08:08→20:14)
[2020-02-25] MEDS: METOPROLOL SUCCINATE 50 MG TAB.SR.24H PO SCH (08:08)
[2020-02-25] MEDS: FOLIC ACID 1 MG TABLET PO SCH (08:09)
[2020-02-25] MEDS: PANTOPRAZOLE SODIUM 40 MG TABLET.DR PO SCH ×2 (08:09→20:14)
[2020-02-25] MEDS: LEVETIRACETAM 500 MG TABLET PO SCH ×2 (08:09→20:14)
[2020-02-25] MEDS: ROPINIROLE HCL 1 MG TABLET PO SCH ×3 (08:09→20:14)
[2020-02-25] MEDS: ENOXAPARIN SODIUM 40 MG/0.4 ML SYRINGE SQ SCH (08:10)
[2020-02-25] MEDS: CHOLECALCIFEROL 400 UNIT PO SCH (08:15)
[2020-02-25] MEDS: FLUTICASONE PROPIONATE 50MCG/SPRAY 16 GM BOTTLE EN SCH ×2 (08:15→20:18)
[2020-02-25] MEDS: **HM** TRELEGY ELLIPTA IH SCH (08:15)
[2020-02-25 09:40] VITALS: BP 176/106
[2020-02-25] MEDS: PRIMIDONE 50 MG TAB PO SCH ×2 (10:11→20:15)
[2020-02-25 12:00] VITALS: BP 135/76
[2020-02-25] MEDS: AZITHROMYCIN 250 MG TABLET PO SCH (13:18)
[2020-02-25] MEDS ORDERED: MORPHINE SULFATE IR 15 MG TAB 15 MG TABLET PO PRN (15:15)
[2020-02-25] MEDS ORDERED: ALBUTEROL INHALER 90MCG/INH IH PRN (15:15)
[2020-02-25 16:57] VITALS: BP 142/82
[2020-02-25 20:08] VITALS: BP 129/79
[2020-02-25] MEDS: ASPIRIN 81 MG EC TAB PO SCH (20:14)
[2020-02-25] MEDS: LORATADINE 10 MG TABLET PO SCH (20:14)
[2020-02-25] MEDS: ATORVASTATIN CALCIUM 20 MG TABLET PO SCH (20:15)
[2020-02-26] VITALS: BP 140/74
[2020-02-26] MEDS: FLU VACC QS2020-21(6MOS UP)/PF 60 MCG/0.5 ML ML IM SCH (00:19)
[2020-02-26] MEDS: ZOLPIDEM TARTRATE 5 MG TAB PO PRN (00:21)
[2020-02-26 03:55] VITALS: BP 162/66
[2020-02-26 04:08] VITALS: BP 148/72
[2020-02-26] MEDS: METHYLPREDNISOLONE SOD SUCC 40MG/ML 1ML IVP SCH (06:04)
[2020-02-26 08:43] VITALS: BP 138/70
[2020-02-26] MEDS ORDERED: **HM**(Fluticasone/Umeclidin/Vilanter (Trelegy Ellipta 100-62.5- IH SCH (09:00)
[2020-02-26] MEDS: CHOLECALCIFEROL 400 UNIT PO SCH (09:00)
[2020-02-26] MEDS ORDERED: CYANOCOBALAMIN (VITAMIN B-12) 1,000 MCG TABLET PO SCH (09:00)
[2020-02-26] MEDS: FERROUS SULFATE 325 MG TABLET.DR PO SCH (09:01)
[2020-02-26] MEDS: METOPROLOL SUCCINATE 50 MG TAB.SR.24H PO SCH (09:02)
[2020-02-26] MEDS: PRIMIDONE 50 MG TAB PO SCH (09:02)
[2020-02-26] MEDS: CETIRIZINE HCL 5 MG TABLET PO SCH (09:02)
[2020-02-26] MEDS: LEVETIRACETAM 500 MG TABLET PO SCH (09:03)
[2020-02-26] MEDS: FOLIC ACID 1 MG TABLET PO SCH (09:03)
[2020-02-26] MEDS: PANTOPRAZOLE SODIUM 40 MG TABLET.DR PO SCH (09:03)
[2020-02-26] MEDS: ROPINIROLE HCL 1 MG TABLET PO SCH (09:03)
[2020-02-26] MEDS: LOSARTAN 100 MG TABLET PO SCH (09:03)
[2020-02-26] MEDS: ENOXAPARIN SODIUM 40 MG/0.4 ML SYRINGE SQ SCH (09:08)
[2020-02-26] MEDS: **HM** TRELEGY ELLIPTA IH SCH (09:08)
[2020-02-26] MEDS: FLUTICASONE PROPIONATE 50MCG/SPRAY 16 GM BOTTLE EN SCH (09:09)
[2020-02-26] MEDS ORDERED: GUAI600T50 PO (10:39)
[2020-02-26 12:00] VITALS: BP 123/72
--- NOTE | 2020-02-26 12:30 | NUR ---
DISCHARGE INSTRUCTIONS GIVEN TO PATIENT, MADE AWARE OF NEW RX FOR MUCINEX AND NEED TO SCHEDULE APPOINTMENTS WITH PCP DR. Timmy CERON AND DR. DIANE NEXT BUSINESS DAY. PATIENT AT THIS TIME DENIES SHORTNESS OF BREATH OR CHEST PAIN. SATURATING 94% ON 2LITERS, NO DISTRESS NOTED. IV AND TELE DISCONTINUED. PATIENT WILL BE TAKEN HOME BY HIS
[2020-02-26] MEDS: AZITHROMYCIN 250 MG TABLET PO SCH (12:46)
== END 2020-02-26 13:15 | disposition home or self-care (01) | DRG 189 ==
LOC: EDH 08:46 → EDHIP 18:12 → 2AH 23:28 → 4DH 02-24 17:09
PROVIDERS: ADMIT Family Medicine; ATTEND Family Medicine
DX: J96.21 Acute and chronic respiratory failure with hypoxia (principal); J98.11 Atelectasis; E87.1 Hypo-osmolality and hyponatremia; J44.1 Chronic obstructive pulmonary disease with (acute) exacerbation; Z20.828 Contact with and (suspected) exposure to other viral communicable diseases; J30.9 Allergic rhinitis, unspecified; I25.10 Atherosclerotic heart disease of native coronary artery without angina pectoris; M47.815 Spondylosis without myelopathy or radiculopathy, thoracolumbar region; J30.89 Other allergic rhinitis; D50.9 Iron deficiency anemia, unspecified; E78.5 Hyperlipidemia, unspecified; G40.909 Epilepsy, unspecified, not intractable, without status epilepticus; I11.9 Hypertensive heart disease without heart failure; G89.29 Other chronic pain; R63.4 Abnormal weight loss; M54.9 Dorsalgia, unspecified; Z95.5 Presence of coronary angioplasty implant and graft; Z87.891 Personal history of nicotine dependence; Z83.3 Family history of diabetes mellitus; Z82.5 Family history of asthma and other chronic lower respiratory diseases; Z82.49 Family history of ischemic heart disease and other diseases of the circulatory system; Z82.3 Family history of stroke; Z82.0 Family history of epilepsy and other diseases of the nervous system; Z80.7 Family history of other malignant neoplasms of lymphoid, hematopoietic and related tissues; Z68.23 Body mass index [BMI] 23.0-23.9, adult
CPT/HCPCS: 36415; 36600; 71045; 71275; 80048; 80053; 82550; 82728; 82803; 83615; 83880; 84145; 84484; 85025; 85378; 85610; 85730; 86140; 87426; 93005; 94640; 94760; A4606; G0378; J0456; J1644; J1650; J2920; J2930; Q2035; Q9967; U0003

== ENCOUNTER → 2020-03-22 | Outpatient (CLI) | payer MEDICARE ==
[~2020-03-22] MED LIST changes: +ALBU8.5H8 IH; -ALBUHFA IH; -BENA10TA77 PO; +CYAN25002 SL; -CYAN500T63 PO; +FLUT1BLS3 IH; -GABA-531 PO; -GABA600T10 PO; -GLUC-145 PO; +GUAI600T50 PO; +LOSA100T2 PO; -MULT-1203 PO; -ROPI0.2527 PO; +ROPI0.5T7 PO; -SACC250C9 PO; -TRAM50TA4 PO
[2020-03-22 11:08] LABS: ABG BASE EXCESS 5.1 mmol/L (-2.0-3.0); ABG HCO3 31.6 mmol/L (21.0-28.0); ABG OXYGEN SATURATION 94.8 % (95.0-99.0); ABG PCO2 54 mmHg (35-48)
== END | disposition home or self-care (01) ==
LOC: LAB 10:24
PROVIDERS: ATTEND Internal Medicine Critical Care Medicine
DX: J44.9 Chronic obstructive pulmonary disease, unspecified (principal)
CPT/HCPCS: 36600; 82803

== ENCOUNTER → 2022-12-03 | Outpatient (CLI) | payer MEDICARE ==
[~2022-12-03] MED LIST changes: -LOSA100T2 PO; +LOSA100T3 PO
[2022-12-03 15:39] LABS: ABG HCO3 32.4 mmol/L (21.0-28.0); ABG OXYGEN SATURATION 93.1 % (95.0-99.0); ABG PCO2 48 mmHg (35-48)
== END | disposition home or self-care (01) ==
LOC: LAB 15:06
PROVIDERS: ATTEND Internal Medicine Critical Care Medicine
DX: J96.12 Chronic respiratory failure with hypercapnia (principal)
CPT/HCPCS: 36600; 82803